=== PATIENT | male | born 1995 | race Caucasian/White ===

== ENCOUNTER 2019-05-28 18:59 | Emergency (ER) | payer BC ==
[~2019-05-28] VITALS: Ht 180.3 cm; Wt 97.5 kg
== END 2019-05-28 20:20 | disposition home or self-care (01) ==
LOC: ER 18:59
DX: F12.90 Cannabis use, unspecified, uncomplicated (principal); T40.7X5A Adverse effect of cannabis (derivatives), initial encounter
CPT/HCPCS: 99283; Q0163